=== PATIENT | male | born 1975 | race Caucasian/White ===

== ENCOUNTER 2023-03-16 10:52 | Emergency (ER) | payer BC ==
[~2023-03-16] VITALS: Ht 190.5 cm; Wt 108.4 kg
[~2023-03-16 10:52] MED LIST: NAPR-243 PO; SULF1TAB38 PO
--- NOTE | 2023-03-16 11:09 | ED Chest Pain ---
General Chief Complaint: Chest Pain Stated Complaint: CHEST DISCOMFORT | LT SIDE PAIN WHILE SLEEPING Source: patient Exam Limitations: no limitations (GRISELDA DEL CASTILLO) History of Present Illness Date Seen by Provider: Mar 16, 2023 Time Seen by Provider: 11:06 Initial Comments Patient is a 48-year-old male who presents ED with left-sided chest pain. Chest pain started initially described as mild pain. Todd like the pain is fairly constant but with increased intensity at times. Pain is located left- sided chest without radiation. Worse when he lays down on that side reports a sharp stabbing pain. No shortness of breath or cough with the pain. Patient denies history of similar symptoms. Has been taking some ibuprofen and Elia aspirin without much improvement. Strong family cardiac history. Denies history of hypertension, diabetes, high cholesterol or smoking. Denies any recent travels, surgeries or leg swelling, recent travels. Denies any cough, fever, chills, body aches. (GRISELDA DEL CASTILLO) Allergies and Home Medications Allergies Coded Allergies: Poison Anusha Extract (Unverified Adverse Reaction, Mild, DIFFICULT TO GET HEALED, 04/20/11) Patient Home Medication List Home Medication List Reviewed: Yes (GRISELDA DEL CASTILLO) Prednisone (Prednisone) 10 Mg Tab.ds.pk, 10 MG PO DAILY Prescribed by: GUICHO SALAS on 03/16/23 7315 Review of Systems Review of Systems Constitutional: No chills, No diaphoresis, No fever, No malaise, No weakness EENTM: No Double Vision, No Eye Pain Respiratory: Denies Cough, Denies Orthopnea Cardiovascular: Chest Pain Gastrointestinal: Denies Abdominal Pain, Denies Diarrhea, Denies Nausea, Denies Vomiting Genitourinary: Denies Burning, Denies Discharge, Denies Drainage, Denies Frequency Musculoskeletal: No back pain, No joint pain Skin: No change in color, No change in hair/nails (GRISELDA DEL CASTILLO) All Other Systems Reviewed Negative Unless Noted: Yes (GRISELDA DEL CASTILLO) Past [id number]-Xrzaqc Hx Patient Social History Tobacco Use?: No Substance use?: No Alcohol Use?: No (GRISELDA DEL CASTILLO) Physical Exam Vital Signs Vital Signs - First Documented 03/16/23 11:03 Pulse 79 B/P (MAP) 139/108 (118) Pulse Ox 97 O2 Delivery Room Air (REMBERTO HERZOG MD) Vital Signs Capillary Refill : (GRISELDA DEL CASTILLO) Height, Weight, BMI Height: '" Weight: lbs. oz. kg; BMI Method: General Appearance: No Apparent Distress, WD/WN HEENT: PERRL/EOMI, TMs Normal, Normal ENT Inspection, Pharynx Normal Neck: Full Range of Motion, Normal Inspection, Supple Respiratory: Chest Non Tender, Lungs Clear, Normal Breath Sounds, No Accessory Muscle Use, No Respiratory Distress Cardiovascular: Regular Rate, Rhythm, No Edema, No Gallop, No JVD, No Murmur Gastrointestinal: Normal Bowel Sounds, No Organomegaly, No Pulsatile Mass, Non Tender Neurologic/Psychiatric: Alert, Oriented x3, No Motor/Sensory Deficits, Normal Mood/Affect, donor technician II-XII Norm as Tested Skin: Normal Color, Warm/Dry (GRISELDA DEL CASTILLO) Progress/Results/Core Measures Results/Orders Lab Results Laboratory Tests Test 03/16/23 11:10 03/16/23 14:00 Range/Units White Blood Count 7.1 4.3-11.0 10^3/uL Red Blood Count 5.56 H 4.30-5.52 10^6/uL Hemoglobin 16.7 13.3-17.7 g/dL Hematocrit 49 40-54 % Mean Corpuscular Volume 88 80-99 fL Mean Corpuscular Hemoglobin 30 25-34 pg Mean Corpuscular Hemoglobin Concent 34 32-36 g/dL Red Cell Distribution Width 12.8 10.0-14.5 % Platelet Count 221 130-400 10^3/uL Mean Platelet Volume 10.2 9.0-12.2 fL Immature Granulocyte % (Auto) 0 % Neutrophils (%) (Auto) 63 42-75 % Lymphocytes (%) (Auto) 28 12-44 % Monocytes (%) (Auto) 7 0-12 % Eosinophils (%) (Auto) 1 0-10 % Basophils (%) (Auto) 1 0-10 % Neutrophils # (Auto) 4.4 1.8-7.8 10^3/uL Lymphocytes # (Auto) 2.0 1.0-4.0 10^3/uL Monocytes # (Auto) 0.5 0.0-1.0 10^3/uL Eosinophils # (Auto) 0.1 0.0-0.3 10^3/uL Basophils # (Auto) 0.1 0.0-0.1 10^3/uL Immature Granulocyte # (Auto) 0.0 0.0-0.1 10^3/uL Prothrombin Time 12.7 12.2-14.7 SEC INR Comment 0.9 0.8-1.4 Activated Partial Thromboplast Time 37 H 24-35 SEC Sodium Level 139 135-145 MMOL/L Potassium Level 4.3 3.6-5.0 MMOL/L Chloride Level 108 H 98-107 MMOL/L Carbon Dioxide Level 22 21-32 MMOL/L Anion Gap 9 5-14 MMOL/L Blood Urea Nitrogen 22 H 7-18 MG/DL Creatinine 1.35 H 0.60-1.30 MG/DL Estimat Glomerular Filtration Rate 65 BUN/Creatinine Ratio 16 Glucose Level 87 70-105 MG/DL Calcium Level 9.6 8.5-10.1 MG/DL Corrected Calcium 9.3 8.5-10.1 MG/DL Magnesium Level 2.2 1.6-2.4 MG/DL Total Bilirubin 0.5 0.1-1.0 MG/DL Aspartate Amino Transf (AST/SGOT) 27 5-34 U/L Alanine Aminotransferase (ALT/SGPT) 53 0-55 U/L Alkaline Phosphatase 77 40-136 U/L Myoglobin 41.2 10.0-92.0 NG/ML Troponin I < 0.028 < 0.028 <0.028 NG/ML B-Type Natriuretic Peptide < 10.0 <100.0 PG/ML Total Protein 7.9 6.4-8.2 GM/DL Albumin 4.4 3.2-4.5 GM/DL Lipase 32 8-78 U/L (REMBERTO HERZOG MD) Medications Given in ED Current Medications Medications Dose Ordered Sig/Ricardo Route Start Time Stop Time Status Last Admin Dose Admin Aspirin 324 mg ONCE ONCE PO 03/16/23 11:15 03/16/23 11:16 DC 03/16/23 11:20 324 MG (REMBERTO HERZOG MD) Vital Signs/I&O 03/16/23 03/16/23 11:03 14:56 Pulse 79 65 B/P (MAP) 139/108 (118) 110/90 Pulse Ox 97 95 O2 Delivery Room Air Room Air (REMBERTO HERZOG MD) Comment Sinus rhythm, right bundle branch block, left anterior fascicular block, 71 bpm, QRS duration 125 MS, QTc 410 MS (GRISELDA DEL CASTILLO) Departure Communication (PCP) Differential diagnosis, ACS, pericarditis, myocarditis, pneumonia, pleurisy. Patient presents left-sided chest pain since . Appears to be worse when he lays down on the left side described as sharp. No specific injury. No shortness of breath, cough, nausea, vomiting, diarrhea. No recent travels or surgeries. Denies any leg swelling. Denies hemoptysis. No history of cancer or blood disorders. Denies history of similar symptoms. Denies history of hypertension, diabetes, high cholesterol smoking. Strong family cardiac history. Denies history of cardiac work-up. Patient reports very minimal pain and described as more of a discomfort. Refused anything for pain at this time. Did receive full aspirin 324 mg with cardiac work-up. CBC, CMP grossly unremarkable besides his BUN 22 and creatinine 1.35. Did receive a liter of fluid, . Patient Is not hypoxic or tachycardic. Initial troponin negative. BNP negative. PERC is 0. Heart score of 2. EKG did show normal sinus rhythm 71 bpm. Right bundle branch block. No diffuse ST elevation, depression or arrhythmia. Q waves noted in V1 V2. Low suspicion however due to strong family cardiac history did order a delta troponin 3 hours from his initial troponin. Presentation is somewhat concerning for pericarditis especially with the pain that sharp when he lays on the left side and resolves when he moves. Suggest starting an anti-inflammatory. Denies chest pain with exertion. No shortness of breath. He has no abdominal tenderness. No specific tenderness to suggest pleurisy, costochondritis. No evidence suggesting PE, myocarditis. Chest x-ray did not show any pneumonia, pneumothorax or mediastinal widening suggesting ao rtic dissection. patient with low PERC score so D-dimer was not ordered. Does not appear toxic or septic. Delta troponin was negative. No pain with eating suggesting gastritis or esophagitis. Denies burping or indigestion. Soft abdomen. due to reassuring lab work and presentation suggest outpatient cardiac follow-up at this time. Provided discharged with follow-up with cardiology. If any worsening chest pain, shortness of breath with exertion, diaphoresis to return back to ED. (GRISELDA DEL CASTILLO) Impression Primary Impression: Chest pain Disposition: 01 HOME, SELF-CARE Condition: Stable Departure-Patient Inst. Decision time for Depature: 14:45 (GRISELDA DEL CASTILLO) Referrals: MARGIE WHEAT MD FACP [facility] BRIAN CAZARES MD, CHAD C MD (PCP/Family) Primary Care Physician Patient Instructions: Chest Pain (DC) Add. Discharge Instructions: Recommend consider taking ibuprofen 600 mg every 8 hours for 7 to 10 days. Will discharge with a short burst taper steroid. If any increased pain short of breath with exertion, nausea, diaphoretic to return back to ED. Suggest following up with cardiology outpatient. All discharge instructions reviewed with patient and/or family. Voiced understanding. Scripts Prednisone (Prednisone) 10 Mg Tab.ds.pk 10 MG PO DAILY, #21 EA Take 6 tabs(60mg)daily,decrease by 1 tab(10MG)daily. Prov: GRISELDA DEL CASTILLO 03/16/23 ATTENDING PHYSICIAN NOTE: I was physically present as attending physician in the emergency department during the care of this patient, but I was not directly involved in the decision making or delivery of care for this patient. (REMBERTO HERZOG MD) GRISELDA DEL CASTILLO Mar 16, 2023 11:09 REMBERTO HERZOG MD Mar 16, 2023 21:38
[2023-03-16] MEDS ORDERED: ASPIRIN 81 MG CHEWABLE TABLET PO ONE (11:15)
[2023-03-16 11:19] LABS: BASOPHILS # (AUTO) 0.1 10^3/uL (0.0-0.1); BASOPHILS % (AUTO) 1 % (0-10); EOSINOPHILS # (AUTO) 0.1 10^3/uL (0.0-0.3); EOSINOPHILS % (AUTO) 1 % (0-10); HEMATOCRIT 49 % (40-54); HEMOGLOBIN 16.7 g/dL (13.3-17.7); LYMPHOCYTES % (AUTO) 28 % (12-44); MEAN CORPUSCULAR HEMOGLOBIN 30 pg (25-34); MEAN CORPUSCULAR HGB CONC 34 g/dL (32-36); MEAN CORPUSCULAR VOLUME 88 fL (80-99); MEAN PLATELET VOLUME 10.2 fL (9.0-12.2); MONOCYTES # (AUTO) 0.5 10^3/uL (0.0-1.0); MONOCYTES % (AUTO) 7 % (0-12); NEUTROPHILS # (AUTO) 4.4 10^3/uL (1.8-7.8); NEUTROPHILS % (AUTO) 63 % (42-75); PLATELET COUNT 221 10^3/uL (130-400); WHITE BLOOD COUNT 7.1 10^3/uL (4.3-11.0)
[2023-03-16 11:29] LABS: INR 0.9 (0.8-1.4); PROTHROMBIN TIME PATIENT 12.7 SEC (12.2-14.7)
[2023-03-16 11:30] LABS: ALBUMIN 4.4 GM/DL (3.2-4.5); CHLORIDE 108 MMOL/L (98-107); POTASSIUM 4.3 MMOL/L (3.6-5.0); SODIUM 139 MMOL/L (135-145)
[2023-03-16 11:31] LABS: CALCIUM 9.6 MG/DL (8.5-10.1)
[2023-03-16 11:33] LABS: GLUCOSE 87 MG/DL (70-105); TOTAL PROTEIN 7.9 GM/DL (6.4-8.2)
[2023-03-16 11:34] LABS: BILIRUBIN,TOTAL 0.5 MG/DL (0.1-1.0); CARBON DIOXIDE 22 MMOL/L (21-32)
[2023-03-16 11:36] LABS: ALKALINE PHOSPHATASE 77 U/L (40-136); CREATININE SERUM 1.35 MG/DL (0.60-1.30); GFR ESTIMATED 65
[2023-03-16 11:37] LABS: BUN/CREATININE RATIO 16
[2023-03-16 11:39] LABS: ALANINE AMINOTRANSFERASE 53 U/L (0-55); MAGNESIUM 2.2 MG/DL (1.6-2.4)
[2023-03-16 11:40] LABS: LIPASE 32 U/L (8-78)
--- NOTE | 2023-03-16 11:44 | Diagnostic Imaging Report ---
Indication: Chest pain Single AP view of chest is obtained. COMPARISON: No previous study is available for comparison at this time. FINDINGS: Heart size and pulmonary vasculature are within normal limits, and the lungs are clear, bilaterally. IMPRESSION: Unremarkable chest. Dictated by: Dictated on workstation # [id number]
[2023-03-16] MEDS ORDERED: NS IV 1000 ML 1,000 ML IV STA (11:46)
[2023-03-16] MEDS ORDERED: PRED10TA22 PO (14:48)
[2023-03-16 14:56] VITALS: BP 110/90
== END 2023-03-16 14:54 | disposition home or self-care (01) ==
LOC: EDUNIT# 10:52 → ER 10:55
DX: R07.89 Other chest pain (principal); I45.10 Unspecified right bundle-branch block
CPT/HCPCS: 36415; 71045; 80053; 83690; 83735; 83874; 83880; 84484; 85025; 85610; 85730; 93005; 93041

== ENCOUNTER → 2023-04-15 | Outpatient (CLI) | payer BC ==
[~2023-04-15] MED LIST changes: +PRED10TA22 PO
[2023-04-15 08:25] VITALS: BP 127/89
== END ==
LOC: CARD 07:50
PROVIDERS: ATTEND Internal Medicine Cardiovascular Disease
DX: I11.9 Hypertensive heart disease without heart failure (principal); I25.10 Atherosclerotic heart disease of native coronary artery without angina pectoris
CPT/HCPCS: 93351; C8929; 93306